=== PATIENT | male | born 1955 | race Caucasian/White ===

== ENCOUNTER → 2021-06-26 | Outpatient (CLI) | payer OTHER | END | disposition home or self-care (01) | LOC: LAB SHORT 15:44 → LAB 15:44 | DX: R30.9 Painful micturition, unspecified (principal) | CPT/HCPCS: 87086 ==

== ENCOUNTER 2025-03-16 08:29 | Day surgery (SDC) | payer OTHER ==
[~2025-03-16] VITALS: Ht 172.7 cm; Wt 50.2 kg
[2025-03-16] VITALS (22 sets, daily range): BP systolic 124–176; BP diastolic 83–106
[2025-03-16] MEDS ORDERED: LISI20 PO (08:42)
--- NOTE | 2025-03-16 09:22 | NUR ---
03/16/25 0922 Pablo Alarcon CONFIRMED AND REVIEWED H&P, MEDCICATIONS, ALLERGIES, MEDICAL HISTORY, RESPIRATORY HISTORY, VITAL SIGNS, 3-LEAD EKG, CONSENTS, AND PHYSICIAN ORDERS. PATIENT CONFIRMS NPO STATUS AND AGREES WITH SCHEDULED PROCEDURE. MONITOR INTACT WITH CONTINUOUS PULSE OXIMETRY, CAPNOGRAPHY, 3-LEAD EKG, INTERMITTENT BP. SUPPLEMENTAL O2 TO BE TITRATED THROUGHOUT PROCEDURE TO MAINTAIN O2 SATURATION ABOVE 90%. PATIENT DETERMINED TO BE ASA APPROPRIATE FOR PROPOFOL SEDATION PRIOR TO START OF PROCEDURE BY DR. SUAREZ.
--- NOTE | 2025-03-16 10:15 | NUR ---
Patient States Post-Procedure ride home has been arranged. Discharged via wheelchair to private car for ride home. Discharge instructions reviewed with patient. Patient verbalizes understanding. Copy given to patient to take home.
== END 2025-03-16 23:00 | disposition home or self-care (01) ==
LOC: ORSCMMR 08:29 → ORD 09:15 → ORSCMMR 09:15
PROVIDERS: Internal Medicine Gastroenterology
PROC: 0DBL8ZX Excision of Transverse Colon, Via Natural or Artificial Opening Endoscopic, Diagnostic (ICD-10-PCS; principal; 2025-03-16 09:15)
PROC: 0DBH8ZX Excision of Cecum, Via Natural or Artificial Opening Endoscopic, Diagnostic (ICD-10-PCS; principal; 2025-03-16 09:15)
PROC: 0DBK8ZX Excision of Ascending Colon, Via Natural or Artificial Opening Endoscopic, Diagnostic (ICD-10-PCS; principal; 2025-03-16 09:15)
PROC: 0DBN8ZX Excision of Sigmoid Colon, Via Natural or Artificial Opening Endoscopic, Diagnostic (ICD-10-PCS; principal; 2025-03-16 09:15)
DX: K50.114 Crohn's disease of large intestine with abscess (principal); I10 Essential (primary) hypertension; Z79.899 Other long term (current) drug therapy; F17.210 Nicotine dependence, cigarettes, uncomplicated
CPT/HCPCS: 88305; J2704; J7120